=== PATIENT | female | born 1975 | race Two or more races ===

== ENCOUNTER 2019-05-09 15:36 | Emergency (ER) | payer SELFPAY ==
[~2019-05-09 15:36] MED LIST: ALBU8.5H12 IH; AZIT500T47 PO; CEP500 PO; CIP500 PO; DOXY-179 PO; HYDR-3250 PO; IBU600 PO; IBU800 PO; KET10 PO; LOM PO; LOR5/325 PO; LORA-633 PO; MEDR10TA65 PO; NO ROUTINE MEDS; OND4 PO; ONDA4TAB PO; PER PO; PHENA100 PO; PRE10 PO; PRE20 PO; PRED-314 PO; PRO25 PO; TAM4 PO
--- NOTE | 2019-05-09 16:21 | ER Report ---
History and Physical Time Seen By MD: 16:14 Hx. of Stated Complaint: couple days ago began feeling like her tongue was burned. today she woke up with swollen lips. has been taking benadryl. lips no longer swollen, tongue still feels burned and numb. HPI/ROS CHIEF COMPLAINT: Mouth pain HISTORY OF PRESENT ILLNESS: This is a 43-year-old female presents to the emergency department for mouth pain. Patient states that about 3 days ago she developed some tongue pain, burning "as if you drank some hot water", she also she is unable to taste like normal. She states that she woke this am and her lips were swollen, she took some benadryl, the lip swelling has improved. She states she still has the sensation in her mouth. She does have allergies however she is not entirely sure if this is allergy related, she states that she's not eaten anything unusual, no recent changes in medications, has not come into contact with anything unusual, no recent travel, no sick kids. No nausea or vomiting. No fevers, no other rashes. She states that her gums are also painful. REVIEW OF SYSTEMS: Mouth: As above. Respiratory: No cough, no dyspnea. Cardiovascular: No chest pain, no palpitations. Gastrointestinal: No vomiting, no abdominal pain. Musculoskeletal: No back pain. Allergies: Coded Allergies: morphine (Verified Allergy, Unknown, 05/09/19) Home Meds Active Scripts Prednisone (PREDNISONE) 20 Mg Tablet, 20 MG PO BID, #10 TAB Prov:ROGERS CONTRERAS Blaise NICK SETTER- 05/09/19 Discontinued Reported Medications [none] No Conflict Check 10/13/13 Acetaminophen/Hydrocodone (LORTAB 5/325 MG (OR EQUIV)) 1 Ea Tab, 1 EA PO Q4H PRN , #6 02/16/13 Ketorolac Tromethamine (Toradol) 10 Mg Tab, 10 MG PO Q6H PRN, #12 02/16/13 Promethazine Hcl (PHENERGAN (OR EQUIV)) 25 Mg Tab, 25 MG PO Q8H PRN, #20 02/16/13 Ondansetron (Zofran Odt) 4 Mg/Udtablet Tab.rapdis, 4 MG PO Q6H PRN, #10 02/16/13 [No Routine Meds] No Conflict Check, 0 Refills 09/18/11 Past Medical/Surgical History Patient has a past medical and surgical history of COPD, kidney stones, tubal ligation, anxiety, uterine ablation. Reviewed Nurses Notes: Yes Hx Smoking: No Smoking Status: Former Smoker Exposure to Second Hand Smoke?: No Hx Substance Use Disorder: No Hx Alcohol Use: Yes (RARE) Constitutional Vital Sign - Last 24 Hours 05/09/19 05/09/19 05/09/19 05/09/19 15:50 15:51 15:54 16:06 Temp 99.1 Pulse 78 76 62 Resp 14 B/P (MAP) 96/73 (81) 96/76 Pulse Ox 91 92 91 O2 Delivery Room Air 05/09/19 05/09/19 05/09/19 05/09/19 16:21 16:36 16:49 16:54 Pulse 80 63 ??? B/P (MAP) 99/75 (83) Pulse Ox 93 93 05/09/19 05/09/19 05/09/19 17:09 17:34 18:24 Pulse ? B/P (MAP) 100/66 (77) Physical Exam General Appearance: The patient is alert, has no immediate need for airway protection and no current signs of toxicity. Eyes: Pupils equal and round no injection. Mouth: The tongue has an abnormal appearance, does appear to be mildly inflamed, there is a white appearance to the surface of the tongue however does not appear to be in patches, the white area does not come off, she does have some inflammat ion around her gums as well. No petechiae, no blisters does not appear to be fungal. Respiratory: Chest is non tender, lungs are clear to auscultation. No stridor. Cardiac: regular rate and rhythm, no murmurs, clicks or rubs. Gastrointestinal: Abdomen is soft and non tender, no masses, bowel sounds normal. Musculoskeletal: Neck: Neck is supple and non tender. Extremities have full range of motion and are non tender. Skin: No rashes or lesions. DIFFERENTIAL DIAGNOSIS: After history and physical exam differential diagnosis was considered for Boo-Álvaro syndrome, thrush, leukoplakia, 5th's disease. Medical Decision Making ED Course/Re-evaluation ED Course The patient was admitted to room. A history and physical obtained. Differential diagnoses were considered. The patient was given Magic mouthwash, she was also given 25 mg Benadryl and 60 mg prednisone. The patient states she is feeling better after the medications, the inflammation has gone down however she still has some discomfort on the tongue, I did explain to the patient that this could be allergic in nature. There were no blisters in the mouth or concerning airway findings. She was given a prescription for a steroid burst, instructed take the prednisone as prescribed and Benadryl as needed. Instructed the patient follow up with Dr. Alvarado for reevaluation and allergy testing. Should she develop any respiratory concerns she will return to the ER immediately. Patient was agreeable with this plan of care and discharged home. Decision to Disposition Date: May 09, 2019 Decision to Disposition Time: 18:15 Depart Departure Latest Vital Signs Vital Signs Date Time Temp Pulse Resp B/P (MAP) Pulse Ox O2 Delivery O2 Flow Rate FiO2 05/09/19 18:24 ??? 05/09/19 17:34 100/66 (77) 05/09/19 16:36 93 05/09/19 15:54 99.1 14 Room Air Impression: Primary Impression: Mouth swelling Condition: Improved Disposition: HOME OR SELF-CARE Referrals: ALEJANDRO ROMO MD (PCP) ANTONIO ALVARADO JR, MD New Scripts Prednisone (PREDNISONE) 20 Mg Tablet 20 MG PO BID, #10 TAB Prov: ROGERS CONTRERAS 05/09/19 Departure Forms: ER Transition Record, Medications Reconciliation, Off Work/School Form, School or Work Release?: Work Number of days to be released: 2 Patient Portal Information Patient Instructions: General Allergic Reaction (ED) Additional Instructions: I am unsure what caused the swelling and pain in your mouth, I do however feel there is an allergy component to this, so please take the prednisone as directed. You can also take Benadryl 25mg every 4 hours as needed. Drink plenty of water. Get plenty of rest. Follow up with Dr. Alvarado for allergy testing. Follow up with your pcp in one week for reevaluation. If you have any other concerns, such as shortness of breath or swelling of the throat call 911 and return immediately. ROGERS CONTRERAS-BC May 09, 2019 16:21
[2019-05-09] MEDS ORDERED: LIDOCAINE 2% VISC SLN 15ML UDC PO ONE (16:35)
[2019-05-09] MEDS ORDERED: MAG HYD/AL HYD/SIMETH 30ML UDC PO ONE (16:35)
[2019-05-09] MEDS ORDERED: diphenhydrAMINE 25 MG CAP PO ONE (16:35)
[2019-05-09] MEDS ORDERED: predniSONE 10 MG TAB PO ONE (16:40)
[2019-05-09] MEDS ORDERED: predniSONE 20 MG TAB PO ONE (16:45)
[2019-05-09 17:34] VITALS: BP 100/66
[2019-05-09] MEDS ORDERED: PRED20TA6 PO (18:20)
== END 2019-05-09 18:26 | disposition home or self-care (01) ==
LOC: EDBD 15:36 → ER 16:19
DX: R22.9 Localized swelling, mass and lump, unspecified (principal); K13.79 Other lesions of oral mucosa; J44.9 Chronic obstructive pulmonary disease, unspecified; F41.9 Anxiety disorder, unspecified; Z87.442 Personal history of urinary calculi; Z98.51 Tubal ligation status; F17.200 Nicotine dependence, unspecified, uncomplicated; Z79.52 Long term (current) use of systemic steroids; Z79.899 Other long term (current) drug therapy
CPT/HCPCS: 99283; J7512; Q0163

== ENCOUNTER 2019-05-12 10:27 | Emergency (ER) | payer SELFPAY ==
[~2019-05-12 10:27] MED LIST changes: +PRED20TA6 PO
--- NOTE | 2019-05-12 10:32 | ER Report ---
History and Physical Time Seen By MD: 10:28 HPI/ROS CHIEF COMPLAINT: Possible allergic reaction HISTORY OF PRESENT ILLNESS: The patient is a 43-year-old female presents emergency department with complaint of "allergic reaction". She was actually seen on May 09 for "swelling of the mouth" . The electronic medical record shows that she also complained of some lip swelling and sensation of burning to her tongue. She had no systemic symptoms at that time including no history of hives or respiratory difficulty review of her medical list does not show she is on any type of ML or ARB for blood pressure control. She was treated with prednisone and a burst dose of steroids as an outpatient along with Benadryl and was feeling better at the time of discharge on the . since that time the patient states the numbness and swelling has not significantly improved but the itching and lip swelling did improve somewhat until this morning when the symptoms recurred. He did take 50 mg of oral Benadryl about an hour prior to arrival she has not taken her oral steroid. She denies any recent changes in any medications she is not exposed to any new detergents or chemicals and she denies any new pets. She states that after taking the Benadryl the Swelling Does Feel Somewhat Improved. She further reports that the itching to the face also has im proved after the Benadryl. She denies any systemic symptoms in sense of respiratory difficulty, chest pressure or tightness she denies any symptoms below the neck. REVIEW OF SYSTEMS: Constitutional: No fever, no chills. Eyes: No discharge. ENT: No sore throat. Cardiovascular: No chest pain, no palpitations. Respiratory: No cough, no shortness of breath. Gastrointestinal: No abdominal pain, no vomiting. Genitourinary: No hematuria. Musculoskeletal: No back pain. Skin: Lip swelling, tongue swelling facial itching conjunctival injection Neurological: No headache. Allergies: Coded Allergies: morphine (Verified Allergy, Unknown, 05/12/19) Home Meds Active Scripts Epinephrine (EPINEPHRINE) 0.3 Mg/0.3 Ml Pen.injctr, 0.3 MG IM ONCE for tongue sw elling, #1 KIT 1 Refill Prov:JEAN DOSS MD 05/12/19 Famotidine (PEPCID) 20 Mg Tablet, 20 MG PO QDAY, #20 TAB 0 Refills Prov:JEAN DOSS MD 05/12/19 Prednisone (PREDNISONE) 20 Mg Tablet, 20 MG PO BID, #10 TAB Prov:ROGERS CONTRERAS CAREER SPECIALIST-BC 05/09/19 Discontinued Reported Medications [none] No Conflict Check 10/13/13 Acetaminophen/Hydrocodone (LORTAB 5/325 MG (OR EQUIV)) 1 Ea Tab, 1 EA PO Q4H PRN, #6 02/16/13 Ketorolac Tromethamine (Toradol) 10 Mg Tab, 10 MG PO Q6H PRN, #12 02/16/13 Promethazine Hcl (PHENERGAN (OR EQUIV)) 25 Mg Tab, 25 MG PO Q8H PRN, #20 02/16/13 Ondansetron (Zofran Odt) 4 Mg/Udtablet Tab.rapdis, 4 MG PO Q6H PRN, #10 02/16/13 [No Routine Meds] No Conflict Check, 0 Refills 09/18/11 Past Medical/Surgical History Noncontributory towards the chief complaint Hx Smoking: No Smoking Status: Former Smoker Exposure to Second Hand Smoke?: No Hx Substance Use Disorder: No Hx Alcohol Use: Yes (RARE) Constitutional Vital Sign - Last 24 Hours 05/12/19 05/12/19 05/12/19 05/12/19 10:27 10:30 10:30 10:57 Temp 97.6 Pulse 86 83 69 Resp 16 16 B/P (MAP) 117/90 121/84 (96) Pulse Ox 95 95 94 O2 Delivery Room Air 05/12/19 05/12/19 05/12/19 05/12/19 11:00 11:27 11:30 12:00 Pulse 68 Resp 8 B/P (MAP) 117/74 (88) 133/72 (92) 109/60 (76) Pulse Ox 95 05/12/19 05/12/19 05/12/19 12:05 12:30 12:35 Pulse 76 67 Resp 17 18 B/P (MAP) 99/57 (71) Pulse Ox 96 93 Intake and Output 05/12/19 05/12/19 05/13/19 15:03 23:03 07:03 Intake Total 1050 ml Balance 1050 ml Physical Exam General Appearance: Alert, no distress. Eyes: [Pupils equal and round no pallor or injection.] ENT, Mouth: Ears: Tympanic membranes are normal. Nose: No bleeding. Mouth: Mucous membranes are moist. Tongue is slightly swollen with hyperemia consistent with glossitis, slight swelling to the lips Throat: No exudates there is no tonsillar hypertrophy and uvula is midline. Musculoskeletal: Neck is supple non tender, no adenopathy. Skin: Warm and dry, no rashes. Cardiovascular: Heart is regular Pulmonary: Normal breath sounds bilaterally no wheezing or rhonchi noted Medical Decision Making Data Points Result Diagram: 05/12/19 1050 Laboratory Hematology Test 05/12/19 10:50 White Blood Count 11.2 k/uL (4.5-11.0) H Red Blood Count 4.83 M/uL (4.17-5.56) Hemoglobin 15.7 g/dL (12.0-16.0) Hematocrit 44.9 % (34.0-47.0) Mean Corpuscular Volume 93.0 fL (80.0-96.0) Mean Corpuscular Hemoglobin 32.6 pg (26.0-33.0) Mean Corpuscular Hemoglobin Concent 35.0 g/dL (32.0-36.0) Red Cell Distribution Width 12.6 % (11.5-14.5) Platelet Count 337 K/uL (150-450) Mean Platelet Volume 6.7 fL (7.2-11.1) L Neutrophils (%) (Auto) 48.7 % (39.4-72.5) Lymphocytes (%) (Auto) 35.9 % (17.6-49.6) Monocytes (%) (Auto) 7.7 % (4.1-12.4) Eosinophils (%) (Auto) 6.4 % (0.4-6.7) Basophils (%) (Auto) 1.3 % (0.3-1.4) Nucleated RBC Relative Count (auto) 0.0 /100WBC Neutrophils # (Auto) 5.5 K/uL (2.0-7.4) Lymphocytes # (Auto) 4.0 K/uL (1.3-3.6) H Monocytes # (Auto) 0.9 K/uL (0.3-1.0) Eosinophils # (Auto) 0.7 K/uL (0.0-0.5) H Basophils # (Auto) 0.1 K/uL (0.0-0.1) Nucleated RBC Absolute Count (auto) 0.00 K/uL Peripheral Blood Smear No Y/N ED Course/Re-evaluation ED Course 05/12/2019 10:44:18 am patient with right clinically appears like angioedema, mild however I am unable to determine the cause. She has no history of known hereditary angioedema, she is not on any medication that I can find that would cause angioedema specifically she is not on any antihypertensives such as an ML inhibitor or an ARB; no new chemical exposures no new pets, and she's never experienced anything like this prior to the . We will treat with 25 mg of IV Benadryl, 0.25 mg of IV Ativan for some mild anxiety we'll also give 125 of Solu-Medrol and 20 mg of IV Pepcid. We considered giving a therapeutic dose of epinephrine 0.3mg IM however we will hold off on this for now as her symptoms seem to be improving. 05/12/2019 11:52:21 am patient with minimal improvement after Benadryl and Pepcid and IV Solu-Medrol, so we decided to go forward with 0.3 mg of IM epinephrine which did make the patient jittery and we will control her symptoms with some IV Ativan but she does note that the swelling to the lips and the tongue feels improved. We are considering the possibility that this is hereditary angioedema review of the literature shows that typically hereditary angioedema occurs before age 30 however if you have angioedema after the age 40s typically acquired so we will do some blood testing to make sure the patient has no evidence of hemolysis or lymphoproliferative disorder. 05/12/2019 12:51:30 pm the patient stated some mild symptoms of lip swelling and tongue swelling however very improved specifically after the intramuscular epinephrine. We will discharge the patient home she was counseled on her new medications as well as continuing prednisone and now as a taper. She was also counseled that she should follow-up with Dr. Giuliano Rea and should consider getting allergy testing done and follow up with an allergy electric mule operator. Decision to Disposition Date: May 12, 2019 Decision to Disposition Time: 12:52 Depart Departure Latest Vital Signs Vital Signs Date Time Temp Pulse Resp B/P (MAP) Pulse Ox O2 Delivery O2 Flow Rate FiO2 05/12/19 12:35 67 18 93 05/12/19 12:30 99/57 (71) 05/12/19 10:30 97.6 Room Air Impression: Primary Impression: Angioedema Condition: Improved Disposition: HOME OR SELF-CARE New Scripts Epinephrine (EPINEPHRINE) 0.3 Mg/0.3 Ml Pen.injctr 0.3 MG IM ONCE for tongue swelling, #1 KIT 1 Refill Prov: JEAN DOSS MD 05/12/19 Famotidine (PEPCID) 20 Mg Tablet 20 MG PO QDAY, #20 TAB 0 Refills Prov: JEAN DOSS MD 05/12/19 Departure Forms: ER Transition Record, Medications Reconciliation, Off Work /School Form, School or Work Release?: Work Number of days to be released: 1 Patient Portal Information Patient Instructions: Angioedema (GEN) Additional Instructions: You should continue to take [id number] Benadryl one to 2 tablets every 4-6 hours for the next 72 hours then 1-2 tablets every 4-6 hours as needed for rash or itching. You may also switch after 72 hours to a nonsedating antihistamine s uch as Zyrtec or Claritin if Benadryl is too sedating. You should take Pepcid 1 tablet daily until the prescription is complete, you should continue your current steroid at home 20 mg twice per day until complete and then he should start your new prednisone prescription the 1st prescription will be for 20 mg tablets and used to take as directed, then when this is complete, you willl switch to prednisone 5 mg tablet prescription and take until complete and as directed. If symptoms worsen at any time specifically if he were having trouble breathing or swallowing you should call 911 immediately Problem Qualifiers Primary Impression: Angioedema Encounter type: initial encounter Qualified Codes: T78.3XXA - Angioneurotic edema, initial encounter JEAN DOSS MD May 12, 2019 10:32
[2019-05-12] MEDS ORDERED: ANAPHYLAXIS KIT 1 EA ONE (10:33)
[2019-05-12] MEDS ORDERED: methylPREDNIS SUCC 125 MG/2ML IVP ONE (10:45)
[2019-05-12] MEDS ORDERED: diphenhydrAMINE 50 MG/ML VIAL IVP ONE (10:45)
[2019-05-12] MEDS ORDERED: LORazepam 2 MG/ML VIAL IVP ONE ×2 (10:45→11:55)
[2019-05-12] MEDS ORDERED: FAMOTIDINE(*) 20MG/50ML PREMIX 50 ML IVPB ONE (10:45)
[2019-05-12] MEDS ORDERED: NS(*) 0.9% 1000 ML BAG 1,000 ML IV ONE (11:20)
[2019-05-12] MEDS ORDERED: EPINEPHrine HCL 1 MG/ML AMP IM ONLY ONE (11:30)
[2019-05-12 11:57] LABS: PLATELET COUNT, AUTOMATED 337 K/uL (150-450)
[2019-05-12 12:30] VITALS: BP 99/57
[2019-05-12] MEDS ORDERED: EPIN0.3P3 IM (12:57)
[2019-05-12] MEDS ORDERED: FAMO20TA28 PO (12:57)
== END 2019-05-12 13:10 | disposition home or self-care (01) ==
LOC: ER 10:29
DX: T78.3XXA Angioneurotic edema, initial encounter (principal)
CPT/HCPCS: 85025; 96365; 96372; 96375; 96376; 99284; J0171; J1200; J2060; J2930; J7030

== ENCOUNTER 2019-05-31 16:58 | Emergency (ER) | payer SELFPAY ==
[~2019-05-31 16:58] MED LIST changes: +EPIN0.3P3 IM; +FAMO20TA28 PO
--- NOTE | 2019-05-31 17:02 | ER Report ---
History and Physical Time Seen By MD: 16:57 HPI/ROS CHIEF COMPLAINT: Desquamating rash on the lips HISTORY OF PRESENT ILLNESS: Patient is a 43-year-old female here with complaints of disclamation and pain of the lips with a extending rash. Patient reportedly had an episode of angioedema on May 09 with a subsequent follow-up in the emergency department on the . Patient had been given scripts for epinephrine pen, prednisone extended taper, recommendations for antihistamine. Patient reportedly dropped down to 5 mg at the beginning of the week at which time she developed the rash and disclamation of the lips. Patient reportedly was unable to go to work due to the rash and had increasing pain in spite of applying moisturizing creams. Patient had been recommended to follow up with Dr. Alvarado but has been unable to do so. Patient is afebrile, denies difficulty swallowing, fevers or chills, difficulty breathing REVIEW OF SYSTEMS: Constitutional: No fever, no chills. Eyes: No discharge. ENT: No sore throat. No dysphagia or odynophagia, + disclamation of the lips with surrounding erythematous rash Cardiovascular: No chest pain, no palpitations. Respiratory: No cough, no shortness of breath. Gastrointestinal: No abdominal pain, no vomiting. Genitourinary: No hematuria. Musculoskeletal: No back pain. Skin: No rashes. Neurological: No headache. Allergies: Coded Allergies: morphine (Verified Allergy, Unknown, 05/12/19) Home Meds Active Scripts Prednisone (PREDNISONE) 20 Mg Tablet, 40 MG PO QDAY for 7 Days, #14 TAB Prov:MIRIAM BEE DO 05/31/19 Lidocaine (Lidocaine) 3 % Cream..g., 1 INCH TD Q12H PRN for PAIN, #1 TUBE Prov:MIRIAM BEE DO 05/31/19 Clotrimazole (CLOTRIMAZOLE) 10 Mg Troc, 10 MG MT 5XD for 7 Days, #35 TAB Prov:MIRIAM BEE DO 05/31/19 Epinephrine (EPINEPHRINE) 0.3 Mg/0.3 Ml Pen.injctr, 0.3 MG IM ONCE for tongue swelling, #1 KIT 1 Refill Prov:JEAN DOSS MD 05/12/19 Famotidine (PEPCID) 20 Mg Tablet, 20 MG PO QDAY, #20 TAB 0 Refills Prov:JEAN DOSS MD 05/12/19 Prednisone (PREDNISONE) 20 Mg Tablet, 20 MG PO BID, #10 TAB Prov:ROGERS CONTRERAS Blaise COLINP- 05/09/19 Hx Smoking: No Smoking Status: Former Smoker Exposure to Second Hand Smoke?: No Hx Substance Use Disorder: No Hx Alcohol Use: Yes (RARE) Constitutional Vital Sign - Last 24 Hours 05/31/19 05/31/19 17:00 17:02 Temp 99.0 Pulse 105 90 Resp 20 B/P (MAP) 106/88 (94) 111/82 Pulse Ox 86 94 O2 Delivery Room Air Physical Exam General Appearance: The patient is alert, has no immediate need for airway protection and no signs of toxicity. Uncomfortable appearing Eyes: Pupils equal and round no pallor or injection. ENT, Mouth: Mucous membranes are moist. + White removable plaque of the tongue, disclamation of the lips circumferentially and cracking with surrounding tender rash Respiratory: There are no retractions, lungs are clear to auscultation. Cardiovascular: Regular rate and rhythm. Neurological: No focal neurological deficits, cranial nerves intact Skin: Warm and dry, no rashes. Musculoskeletal: Neck is supple non tender. DIFFERENTIAL DIAGNOSIS: After history and physical exam differential diagnosis was considered for angioedema, autoimmune process, medication side effect, thrush, fungal skin infection Medical Decision Making ED Course/Re-evaluation ED Course 43-year-old female here with complaints of disclamation and pain of the lips with a extending rash. Patient reportedly had an episode of angioedema on May 09 with a subsequent follow-up in the emergency department on the . Patient had been given scripts for epinephrine pen, prednisone extended taper, recommendations for antihistamine. Patient reportedly dropped down to 5 mg at the beginning of the week at which time she developed the rash and disclamation of the lips. Patient reportedly was unable to go to work due to the rash and had increasing pain in spite of applying moisturizing creams. Patient had been recommended to follow up with Dr. Alvarado but has been unable to do so. Patient is afebrile, denies difficulty swallowing, fevers or chills, difficulty breathing. After close examination, there was a white removable plaque like substance on the top of the tongue consistent with thrush. It is unclear whether or not thrush is a secondary side effect to the prednisone taper. The disclamation of the lips and surrounding rash seemed to coincide with the patient dropping out of 5 mg of prednisone, and clear whether or not this is related to an autoimmune process versus fungal infection versus medication side effect. After further discussion with the patient, decision was made to treat with clotrimazole troches for 7 days, restart taking Zyrtec or Claritin daily, increasing prednisone 40 mg until the patient is able to follow-up with Dr. Alvarado. Referral was placed. Patient was also given the phone number for the clinic in order to set up a close follow-up. Patient was given a work excuse in order for her to be able to follow-up in clinic. Patient voiced understanding of the plan. Prescription for lidocaine topical cream for topical anesthesia was provided as the patient has had no success with moisturizing creams. Patient was hemodynamically stable, denies dysphagia, odynophagia, stridor or difficulty breathing. Decision to Disposition Date: May 31, 2019 Decision to Disposition Time: 17:46 Depart Departure Latest Vital Signs Vital Signs Date Time Temp Pulse Resp B/P (MAP) Pulse Ox O2 Delivery O2 Flow Rate FiO2 05/31/19 17:02 99.0 90 20 111/82 94 Room Air Impression: Primary Impression: Lip swelling Additional Impressions: Thrush Skin desquamation Condition: Condition Unchanged Disposition: HOME OR SELF-CARE Referrals: ANTONIO ALVARADO JR, MD New Scripts Prednisone (PREDNISONE) 20 Mg Tablet 40 MG PO QDAY for 7 Days, #14 TAB Prov: MIRIAM BEE DO 05/31/19 Lidocaine (Lidocaine) 3 % Cream..g. 1 INCH TD Q12H PRN for PAIN, #1 TUBE Prov: MIRIAM BEE DO 05/31/19 Clotrimazole (CLOTRIMAZOLE) 10 Mg Troc 10 MG MT 5XD for 7 Days, #35 TAB Prov: MIRIAM BEE DO 05/31/19 Departure Forms: ER Transition Record, Medications Reconciliation, Off W ork/School Form, School or Work Release?: Work Number of days to be released: 4 Patient Portal Information Patient Instructions: Angioedema (ED) Additional Instructions: Please take one clotrimazole tablets 5 times daily for 7 days for treatment of oral thrush. You may apply lidocaine cream to the affected external lips and skin twice daily for topical relief, please do not ingest. Please take prednisone 40 mg or 2 tablets daily until you are able to see Dr. Alvarado. A referral has been placed however please call [phone] in order to set up an appointment with his clinic. Please return promptly if you develop difficulty breathing, difficulty swallowing, fevers, chills. Also please take an oral antihistamine such as Zyrtec or Claritin daily for antihistamine effects. Problem Qualifiers MIRIAM BEE DO May 31, 2019 17:02
[2019-05-31 17:30] VITALS: BP 113/72
[2019-05-31] MEDS ORDERED: PRED20TA6 PO (17:47)
[2019-05-31] MEDS ORDERED: CLO10 MT (17:47)
[2019-05-31] MEDS ORDERED: LIDO28.310 TD (17:47)
== END 2019-05-31 17:58 | disposition home or self-care (01) ==
LOC: ER 17:56
DX: B37.0 Candidal stomatitis (principal); R23.4 Changes in skin texture; M79.89 Other specified soft tissue disorders
CPT/HCPCS: 99281